=== PATIENT | male | born 1970 | race Two or more races ===

== ENCOUNTER 2024-01-20 23:51 | Emergency (ER) | payer OTHER, SELFPAY ==
[2024-01-20 23:54] VITALS: BP 95/70
[2024-01-21] VITALS: BP 109/66
[2024-01-21 00:03] VITALS: BMI 39.7
--- NOTE | 2024-01-21 00:32 | ED.GENMED ---
History of Present Illness
General
Chief Complaint: Pneumonia Symptoms
Source: patient and family
Exam Limitations: none
Time Seen by Provider: 01/21/24 00:01
Nursing documentation reviewed up to this point in time: agreed with
History of Present Illness
History of Present Illness:
53-year-old male diabetic ex-smoker fever chills, cough seen in outside hospital diagnosed with pneumonia started on Levaquin said a few days worth, staying locally as his daughter is getting tomorrow stated he had chills fever cough
vomiting presented via EMS for evaluation borderline pulse ox, with fever so numerous diabetes meds, not on insulin, negative COVID and flu recently had an outside hospital no other family members have been sick
Past History
Past History
ED Past Medical History: HTN and NIDDM
Social History
Tobacco: Former smoker
Drug: None
Living: with family
Employment: Employed
Review of Systems
Review of Systems
All Other Systems: Not applicable
Constitutional: Reports fever, fatigue and chills
Respiratory: Reports trouble breathing
Cardiac: Reports no symptoms
ABD/GI: Reports nausea and vomiting
: Reports no symptoms
Musculoskeletal: Reports no symptoms
Skin: Reports no symptoms
Neurological: Reports weakness
Endocrine: Reports no symptoms
Hematologic/Lymphatic: Reports no symptoms
Phy Exam
Physical Exam
Physical Exam:
Physical Exam
General: 53-year-old male febrile mild distress nontoxic
Neck: No jaundice
Heart: Tachycardic
Lungs: Rhonchi right greater than
Abdomen: Not
Neuro: alert and oriented. no focal neurological deficits
Skin: no rash
Psychiatric: well kept. interactive and cooperative
Extremities: no edema. no calf tenderness.
Course
Orders/Labs/Results
Orders:
Orders
01/21/24 00:24
IV Insert/Care/Rem.- Treatment PRN
0.9% Sodium Chloride 1000 ml [Nss] 1,000 ml IV BOLUS
Acetaminophen [Tylenol] 1,000 mg PO NOW STA
CefTRIAXone [Rocephin] 1,000 mg IV NOW STA
01/21/24 00:25
CR Chest - 2 Views Urgent
Comment:
Reason For Exam: fever cough
01/21/24 00:34
Sterile Water [Sterile Water For Injection] 10 ml .ROUTE .STK-MED ONE
01/21/24 00:47
Complete Blood Count/With Diff Urgent
Comprehensive Metabolic Panel Urgent
Blood Culture Urgent
JADA Source: Blood/Venous
Specimen Description:
01/21/24 01:38
Ketorolac [Toradol] 30 mg IV NOW STA
Abnormal Lab Results
01/21/24
00:47
Abs Immat Gran (auto) 0.2 H 10^3/uL
(0-0.05)
Absolute Neuts (auto) 8.3 H 10^3/uL
(1.4-6.5)
Absolute Lymphs (auto) 0.7 L 10^3/uL
(1.2-3.4)
Absolute Monos (auto) 0.9 H 10^3/uL
(0.1-0.6)
Immature Gran % 2.1 H %
(0-0.5)
Neutrophils % 80.9 H %
(42.2-75.2)
Lymphocytes % 7.2 L %
(20.5-51.1)
Glucose 110 H mg/dl
(70-99)
Total Bilirubin 2.1 H mg/dl
(0.2-1.3)
01/21/24 00:47
01/21/24 00:47
Vital Signs
Initial and Last Documented VS:
Initial Vital Signs
Temp Pulse Resp BP Pulse Ox
101.9 F H 115 18 95/70 90
01/20/24 23:54 01/20/24 23:54 01/20/24 23:54 01/20/24 23:54 01/20/24 23:54
Last Documented Vital Signs
Temp Pulse Resp BP Pulse Ox
101.9 F H 103 11 103/81 92
01/20/24 23:54 01/21/24 01:00 01/21/24 01:00 01/21/24 01:00 01/21/24 01:00
MDM/Problems Addressed
Differential Diagnosis Includes:
Dehydration, progressively worsening pneumonia, natural course of pneumonia rigors borderline hypoxia, biliary tract disease related to the Ozempic
Negative flu and COVID by patient's report
MDM/Problems Addressed:
Fever nausea vomiting pneumonia
Chronic conditions affecting care: DM
Acute Exacerbation and/or Progression of Chronic Illness: DM
*Radiology
Radiology exam reviewed: preliminary read by ED provider
*Pulse Oximetry
Patient hypoxic: no
Comment: 93
*Bow Machine Operator Interpretation
Rate: tachycardiac
Interpretation: abnormal
Heart Rate: 118
Rhythm: sinus
*Critical Care Note
Total Time (30-74mins, 75-104mins- exclusive of procedures): Not Applicable
Update Note
Update Note:
Update labs were noted cultures been sent chest x-ray noted--does not look too bad, formal report is pending, patient treated with ceftriaxone saline Tylenol
He obviously would like to go to his daughter's wedding tomorrow see if we can get him well enough for discharge
135 patient feeling better
Tolerating p.o. fluids
His oxygenation is adequate
Not entirely clear if community-acquired pneumonia is the final diagnosis here but nonetheless he is feeling better, tolerating p.o. fluids,
ED Attending Note
-
Portions of this chart may have been created with voice recognition software.� Occasional wrong word or��sound alike� substitutions may have occurred due to the inherent limitations of voice recognition software.
Discharge Plan
Departure
Patient Disposition: Home (Routine Discharge)
Date of Disposition: 01/21/24
Time of Disposition: 01:40
Patient with high blood pressure during this ER visit?: No
Condition: Good
Discharge Problem:
Fever
Instructions: Pneumonia, Adult (DC)
Prescriptions:
New
promethazine 25 mg tablet
12.5 mg PO Q6H PRN (Reason: nausea and vomiting) Qty: 10 0RF
No Action
metformin 1,000 mg Tablet
1,000 mg PO BID
glimepiride 4 mg Tablet
4 mg PO BID
rosuvastatin 10 mg Tablet
10 mg PO QPM
Jardiance 10 mg Tablet
10 mg PO DAILY
Ozempic 2 mg/dose (8 mg/3 mL) Pen Injector
2 mg SC QWEEK
pioglitazone 15 mg Tablet
15 mg PO DAILY
levofloxacin [Levaquin] 750 mg Tablet
750 mg PO BID
Referrals:
BLAYNE NOGUEIRA [Other] - Next open appointment
Activity Restrictions/Additional Instructions:
Plenty of fluids, frequent small meals antibiotics as prescribed Tylenol as needed for fever body aches
Return to the ER for worsening symptoms
Interventions
Interventions:
*Risk Screen - Suicide Last Done: 01/20/24 23:54
*General Assessment Last Done: 01/20/24 23:54
*Neglect/Abuse Screening Last Done: 01/20/24 23:54
ED- Fall Risk Assessment Last Done: 01/21/24 00:55
*ED COVID-19 Vaccine History Last Done: 01/20/24 23:54
ED- Cardiac Assessment Last Done: 01/21/24 00:11
ED- Pulmonary Assessment Last Done: 01/21/24 00:11
Discharge Date and Time
Print Language: CAMEROONIAN
[2024-01-21] MEDS: TYLENOL 1000 MG PO (00:38)
[2024-01-21] MEDS: NSS 1000 IV (00:39)
[2024-01-21] MEDS: ROCEPHIN 1000 MG IV (00:47)
[2024-01-21 01:00] VITALS: BP 103/81
[2024-01-21 01:08] LABS: % Basophils 0.5 % (0-2); % Eosinophils 0.1 % (0-6); % Immature Granulocytes 2.1 % (0-0.5); % Lymphocytes 7.2 % (20.5-51.1); % Monocytes 9.2 % (1.7-9.3); % Neutrophils 80.9 % (42.2-75.2); Absolute Basophils 0.1 10^3/uL (0-0.2); Absolute Immature Granulocytes 0.2 10^3/uL (0-0.05); Absolute Lymphocytes 0.7 10^3/uL (1.2-3.4); Absolute Monocytes 0.9 10^3/uL (0.1-0.6); Absolute Neutrophils 8.3 10^3/uL (1.4-6.5); Hematocrit 43.4 % (39.0-52.0); Hemoglobin 14.9 g/dL (13.0-18.0); Mean Corp Hgb Conc. 34.3 g/dL (33.0-37.0); Mean Corpuscular Hgb 29.2 pg (27.0-31.0); Mean Corpuscular Volume 85.1 fL (80.0-94.0); Mean Platelet Volume 9.7 fL (7.4-10.4); Nucleated Red Blood Cells % 0 % (-); Platelet Count 187 10^3/uL (130-400); Red Cell Dist. Width 13.2 % (11.5-14.5); White Blood Cell Count 10.2 10^3/uL (4.8-10.8)
[2024-01-21 01:20] LABS: ALT (SGPT) 32 U/L (0-50); AST (SGOT) 30 U/L (17-59); Albumin 4.3 g/dl (3.5-5.0); Alkaline Phosphatase 55 U/L (38-126); Blood Urea Nitrogen 17 mg/dl (9-20); Calcium 9.1 mg/dl (8.4-10.2); Carbon Dioxide 24 mmol/L (22-30); Chloride 99 mmol/L (98-107); Estimated Creatinine Clearance 102 ml/min; Glucose 110 mg/dl (70-99); Potassium 3.7 mmol/L (3.5-5.1); Sodium 136 mmol/L (135-145); Total Bilirubin 2.1 mg/dl (0.2-1.3); Total Protein 6.8 g/dl (6.3-8.2); eGFR > 60.00
[2024-01-21 02:00] VITALS: BP 104/68
[2024-01-21] MEDS: TORADOL 30 MG IV (02:06)
--- NOTE | 2024-01-21 02:12 | EDRN ---
Pt very diaphoretic - fever broke - pt given towel to dry himself
== END 2024-01-21 02:16 | disposition home or self-care (01) ==
LOC: EMR 23:51
PROVIDERS: EMERGENCY PHYSICIAN Emergency Medicine
DX: R50.9 Fever, unspecified (principal); R11.2 Nausea with vomiting, unspecified; R53.1 Weakness; E11.9 Type 2 diabetes mellitus without complications; J18.9 Pneumonia, unspecified organism; I10 Essential (primary) hypertension; E78.5 Hyperlipidemia, unspecified; Z79.84 Long term (current) use of oral hypoglycemic drugs; Z87.01 Personal history of pneumonia (recurrent); Z87.891 Personal history of nicotine dependence
CPT/HCPCS: 99284; 96374; 96375; 96361; 71046; 80053; 85025; 87040